=== PATIENT | female | born 1975 | race Caucasian/White ===

== ENCOUNTER → 2020-10-11 | Day surgery (SDC) | payer OTHER ==
[~2020-10-11] MED LIST: CITALOPRAM HBR20 MG PO; MELOXICAM15 MG PO; MONTELUKAST SOD10 MG PO; PERCOCET 5-3251 EACH PO; SULFAMETHOXAZO1 EACH PO
[2020-10-11 08:28] LABS: HCG (URINE) SCREEN NEGATIVE (NEGATIVE)
--- NOTE | 2020-10-11 11:32 | NUR ---
1122 PATIENT STOOD TO DRESS AND PASSED MODERATE AMOUNT RED BLOOD FROM PERIEUM. PATIENT WAS PLACED BACK IN BED. AND ASSESSED. PRESSURE APPLIED PER PATIENT. NO OBVIOUS ACTIVE BLEEDING. WILL REASSESS IN 10 MINUTES
--- NOTE | 2020-10-11 11:40 | NUR ---
1140 PATIENT SAT IN CHAIR WITH KEY PAD AND CHUX UNDER HER. KEY PAD WAS CLEAN AFTER SITTING FOR 15 MINUTES. DENIES PAIN OR NAUSEA. DRESSING TO GO HOME
== END | disposition home or self-care (01) ==
LOC: FAS 08:07
PROVIDERS: Obstetrics & Gynecology
DX: N75.0 Cyst of Bartholin's gland (principal); F17.210 Nicotine dependence, cigarettes, uncomplicated; E66.9 Obesity, unspecified; Z68.30 Body mass index [BMI] 30.0-30.9, adult; Z79.899 Other long term (current) drug therapy
CPT/HCPCS: 84703; 86850; 86900; 86901; J1100; J1885; J2250; J2405; J2704; J3010; J7120

== ENCOUNTER → 2020-10-29 | Day surgery (SDC) | payer OTHER ==
[2020-10-29 08:35] LABS: HCG (URINE) SCREEN NEGATIVE (NEGATIVE)
[2020-10-29 09:04] LABS: BASOPHIL 0.7 % (0-2); EOSINOPHIL 5.2 % (0-5); HCT 39.2 % (37.0-47.0); HGB 13.4 g/dl (12.5-16.0); LYMPHOCYTE 27.9 % (15-48); MCH 34.1 pg (25.0-31.0); MCHC 34.2 g/dL (32.0-36.0); MCV 99.7 fL (78.0-100.0); MONOCYTE 11.4 % (0-12); MPV 9.3 fL (6.0-9.5); NEUTROPHIL 54.6 % (41-80); NRBC 0; PLT 281 K/uL (150-400); RBC 3.93 M/uL (4.20-5.40); RDW 12.4 % (11.5-14.0); WBC 9.4 K/uL (4.0-10.5)
== END | disposition home or self-care (01) ==
LOC: FAS 08:07
PROVIDERS: Obstetrics & Gynecology
DX: T81.49XA Infection following a procedure, other surgical site, initial encounter (principal); F17.219 Nicotine dependence, cigarettes, with unspecified nicotine-induced disorders; F41.9 Anxiety disorder, unspecified; Z80.3 Family history of malignant neoplasm of breast; Z81.8 Family history of other mental and behavioral disorders; Z82.3 Family history of stroke; Z80.0 Family history of malignant neoplasm of digestive organs; X58.XXXA Exposure to other specified factors, initial encounter
CPT/HCPCS: 36415; 84703; 85025; 86850; 86900; 86901; J2250; J2704; J3010; J7120